=== PATIENT | female | born 1955 | race Caucasian/White ===

== ENCOUNTER 2018-08-31 09:55 | Emergency (ER) | payer OTHER ==
[~2018-08-31] VITALS: Ht 157.5 cm; Wt 62.1 kg
[2018-08-31] MEDS ORDERED: LISINOPRIL10 MG PO (10:01)
[2018-08-31] MEDS ORDERED: PREDNISONE 10 M10 M1 PO (10:36)
[2018-08-31] MEDS ORDERED: REFRESH LACRI-3.5 GM OPHTHALMIC (10:39)
[2018-08-31] MEDS ORDERED: REFRESH TEARS15 ML OPHTHALMIC (10:39)
[2018-08-31 12:01] VITALS: BP 131/70
== END 2018-08-31 12:02 | disposition home or self-care (01) ==
LOC: ER 09:55
DX: G51.0 Bell's palsy (principal)